=== PATIENT | female | born 1960 | race Caucasian/White ===

== ENCOUNTER → 2019-08-25 | Outpatient (CLI) | payer BC ==
--- NOTE | 2019-08-25 17:13 | PCVCIMAG ---
APPROVED REPORT Study performed: 08/25/2019 15:29:09 Exam: Stress Echocardiogram Indication: Dyspnea Patient Location: Echo lab Stress Nurse: Luly Sim RN Status: routine Ht: 5 ft 3 in HR: 85 bpm BP: 120/80 mmHg Rhythm: NSR Procedure The patient underwent an Exercise Stress Test using the Gilberto Protocol. Blood pressure, heart rate, and EKG were monitored. An Echocardiogram was performed by operating room technician in four stages in quad fashion. At peak stress, four selected images were obtained and placed side by side with resting images for comparison. Stress Test Details Stress Test: Exercise stress testing was performed using a Gilberto protocol. HR Resting HR: 85 bpmMax Heart Rate (APMHR): 162 bpm Max HR Achieved: 148 bpmTarget HR (85% APMHR): 137 bpm % of APMHR: 91 Recovery HR: 94 bpm HR response to stress: Normal HR response to stress BP Resting BP: 120/80 mmHg Max BP: 168/80 mmHg Recovery BP: 142/68 mmHg BP response to stress: Normal blood pressure response to stress. ECG Resting ECG: Sinus Rhythm Stress ECG: Sinus Rhythm Recovery ECG: Sinus Rhythm Clinical Reason for Termination: Maximal effort Exercise duration: 5 min 26 sec Highest Stage Achieved: Stage 2: 2.5 mph at 12% grade. Exercise capacity: 7.00 METs Overall Exercise Capacity for Age: Poor Pre-Stress Echo The resting Echocardiogram showed normal left ventricular contractility with an estimated Ejection Fraction of about 50-55%. Normal wall motion in all segments on baseline images. Post-Stress Echo The stress Echocardiogram showed normal left ventricular contractility with an estimated Ejection Fraction of about 60%. Normal augmentation of wall motion in all segments on post stress images. Clinical No clinical or ECG evidence for ischemia. Conclusion Clinical Response: Non-ischemic Exercise Capacity: Below Average Stress ECG Response: Non-ischemic Stress Echo Images: Non-ischemic The left ventricle is normal in size. Mild increase in wall thickness in both the rest and stress images. Mild mitral regurgitation. Mild tricuspid regurgitation. Pulmonary artery pressure 35mmHg. No other significant valvular abnormalities. Other Information Study Quality: Adequate <Conclusion> The left ventricle is normal in size. Mild increase in wall thickness in both the rest and stress images. Mild mitral regurgitation. Mild tricuspid regurgitation. Pulmonary artery pressure 35mmHg. No other significant valvular abnormalities.
== END | disposition home or self-care (01) ==
LOC: PCVCIMAG 15:15
PROVIDERS: ATTEND Internal Medicine Cardiovascular Disease
DX: I08.1 Rheumatic disorders of both mitral and tricuspid valves (principal); R06.02 Shortness of breath; R00.0 Tachycardia, unspecified; R53.83 Other fatigue; I10 Essential (primary) hypertension; K21.9 Gastro-esophageal reflux disease without esophagitis; Z87.891 Personal history of nicotine dependence
CPT/HCPCS: 93325; 93351